=== PATIENT | male | born 1990 | race Two or more races ===

== ENCOUNTER 2017-05-27 10:03 | Emergency (ER) | payer OTHER, MEDICAID ==
[2017-05-27] MEDS ORDERED: IBUPROFEN 200 MG TAB PO ONE (10:28)
--- NOTE | 2017-05-27 11:16 | EDPHY ---
H & P HPI/ROS: CHIEF COMPLAINT: Chemical exposure History by patient. 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 Apparently the staff nuclear weapons officer was put into foot beds without being diluted as normal and he could smell the chemical and then began feeling poorly with a headache and some dizziness and throat burning. He was removed from the environment and exposure did not last any longer than an hour and occurred several hours prior to arrival. He did not get any of the chemical on her skin, an her eyes or in her mouth or other direct exposure. REVIEW OF SYSTEMS: As in HPI, and all other systems reviewed and are negative Smoking Status: Never smoked Physical Exam: General Appearance: Alert, [ ]. Eyes: Pupils equal and round no pallor or injection. Extraocular movements intact, pH equals 6 ENT, Mouth: Mucous membranes moist. Respiratory: Normal, effort, lungs are clear to auscultation. No wheezes, rales or rhonchi. Cardiovascular: Regular rate and rhythm. S1, S2, no murmurs, gallops or rubs appreciated Gastrointestinal: Abdomen is soft and nontender, no masses, bowel sounds normal. Back: No CVA tenderness, no bony tenderness Neurological: Awake, alert and oriented x 3, no pronator drift, normal gait, no pronator drift Skin: Warm and dry, no rashes. Musculoskeletal: No deformities or tenderness. Extremitie:s full range of motion, no edema Psychiatric: Patient has normal affect, there is no agitation. Constitutional: Initial Vital Signs Temperature (C) 36.8 C 05/27/17 10:09 Heart Rate 74 05/27/17 10:09 Respiratory Rate 14 05/27/17 10:09 Blood Pressure 131/62 H 05/27/17 10:09 O2 Sat (%) 98 05/27/17 10:09 O2 Delivery Mode Room Air Allergies/Adverse Reactions: No Known Allergies Allergy (Verified 05/27/17 10:13) Home Medications: Medication Instructions Recorded Zantac 07/28/15 Albuterol 05/27/17 MDM/Departure - MDM Medications Given: Discontinued Medications Ibuprofen (Motrin) 400 mg PO EDNOW ONE Stop: 05/27/17 10:29 Last Admin: 05/27/17 10:31 Dose: 400 mg ED Course/Re-evaluation: Patient presents after exposure to chemical fumes at work. There was no topical exposure to skin, eyes were mucous membranes. Poison Control was consulted. Patient was complaining of headache. PH of eyes was checked and was 6. Patient was irrigated with normal saline and on recheck pH was back to 7. Slit-lamp exam revealed no evidence of corneal lesion. Patient's vital signs are stable on respiratory exam was clear. Point control recommended rinsing and gargling and then spitting and then confirming patient could take oral fluids. Patient was able to tolerate drinking fluids without difficulty. Patient was discharged home in stable condition with reassurance. - Depart Disposition: Home, Routine, Self-Care Clinical Impression: Exposure to chemical irritant Condition: Good Additional Instructions: You were seen by Dr. Evelia Contreras today. We found no significant damage from the exposure at this time. You should feel better tomorrow. Return for any worsening or new concerns. Referrals: NONE *PRIMARY CARE P,. [Primary Care Provider] - As per Instructions
[2017-05-27 11:57] VITALS: BP 111/66; PULSE 67; RESP 12; TEMP 97.7; O2SAT 99
== END 2017-05-27 11:30 | disposition home or self-care (01) ==
LOC: CED 10:03
DX: Z77.098 Contact with and (suspected) exposure to other hazardous, chiefly nonmedicinal, chemicals (principal)

== ENCOUNTER → 2017-12-09 | Outpatient (CLI) | payer OTHER, MEDICAID | LOC: CIMAGING 10:54 | PROVIDERS: ATTEND Physical Medicine & Rehabilitation | DX: M54.5 Low back pain (principal) | CPT/HCPCS: 72100-PO ==